=== PATIENT | female | born 2000 | race Two or more races ===

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

== ENCOUNTER 2019-05-24 21:46 | Inpatient (IN) | payer OTHER, MEDICAID ==
[~2019-05-24] VITALS: Ht 157.5 cm; Wt 111.0 kg
[2019-05-24 23:01] LABS: Urine Amorphous Crystal MOD /hpf (None Seen); Urine Bacteria MANY /hpf (None Seen); Urine Blood 2+ /uL (Negative); Urine Mucus FEW (None Seen); Urine Specific Gravity 1.017 (1.001-1.035); Urine WBC 238 /hpf (0 - 5); Urine WBC Clumps PRESENT /hpf (None Seen)
[2019-05-25] MEDS ORDERED: SODIUM CHLORIDE 0.9% 1,000 ML IV ONE (01:00)
[2019-05-25] MEDS ORDERED: cefTRIAXone 1GM/50ML D5W 50 ML IV ONE (03:00)
[2019-05-25] MEDS ORDERED: DOCUSATE SOD 100 MG CAP PO PRN (06:00)
[2019-05-25] MEDS ORDERED: HYDROcodone-ACET 5/325MG TAB PO PRN (06:00)
[2019-05-25] MEDS ORDERED: ACETAMINOPHEN 325 MG TAB PO PRN (06:00)
[2019-05-25] MEDS ORDERED: MORPHINE SULFATE 4 MG/ML SYR/VIAL IV PRN (06:00)
[2019-05-25] MEDS: SODIUM CHLORIDE 0.9% 1,000 ML IV SCH ×2 (06:11→11:54)
[2019-05-25] MEDS: ceFAZolin 1GM/50ML 50 ML IV SCH ×3 (06:18→17:42)
[2019-05-25 06:21] LABS: Basophils # (auto) 0 10 ^3/uL (0-0.2); Basophils % (auto) 0.2 % (0.0-2.0); Eosinophils # (auto) 0 10 ^3/uL (0-0.8); Hematocrit 36.9 % (36.0-46.0); Hemoglobin 12.5 g/dL (12.2-16.2); Lymphocytes # (auto) 0.9 10 ^3/uL (0.4-5.4); Lymphocytes % (auto) 8.4 % (10.0-50.0); Mean Corpuscular Hemoglobin 29.6 pg (28.0-32.0); Mean Corpuscular Hgb Conc. 33.8 g/dL (32.0-36.0); Mean Corpuscular Volume 87.5 fL (80.0-100.0); Monocytes # (auto) 0.5 10 ^3/uL (0-1.3); Monocytes % (auto) 4.7 % (0.0-12.0); Neutrophils # (auto) 9.2 10 ^3/uL (1.6-8.6); Neutrophils % (auto) 86.7 % (37.0-80.0); Nucleated Red Blood Cells % 0.1 %; Platelet Count (auto) 165 10^3/uL (140-450); Red Blood Cells 4.22 10^6/uL (4.0-5.20); Red Cell Distribution Width 14.8 % (11.8-14.3); White Blood Cell 10.6 10^3/uL (4.4-10.8)
[2019-05-25 06:38] LABS: BUN/Creatinine Ratio 9.6; Potassium 3.6 mmol/L (3.5-5.1)
--- NOTE | 2019-05-25 08:14 | NUR ---
[facility] admit from ER TERESO QUARLES admitted to [facility] after SBAR received. Patient oriented to Anita Tapia primary RN, unit, room, bed, and unit policies regarding patient care and visiting hours. Patient weighed by bed scale and encouraged to call if they need something. Instructed patient on POC, fall precautions and to call for assistance as needed. Patient verbalized understanding. Fall precautions in place with call light within reach.
[2019-05-25 09:00] VITALS: BP 118/68
--- NOTE | 2019-05-25 10:52 | NUR ---
Patient resting in bed with eyes closed Respirations even and unlabored on room air, no distress noted. No facial grimacing noted. Call light within reach.
--- NOTE | 2019-05-25 11:27 | NUR ---
was at bedside - Dr. Seymour This RN was at bedside.
--- NOTE | 2019-05-25 11:37 | NUR ---
RE: Urine bacterial culture - called laboratory Urine specimen collected previously. Called lab to have collected urine specimen used for urine bacterial culture. Laboratory to review and call this RN back.
[2019-05-25 13:00] VITALS: BP 117/61
[2019-05-25 17:00] VITALS: BP 136/73
--- NOTE | 2019-05-25 17:43 | NUR ---
Patient resting in bed with even and unlabored respirations on room air, no distress noted. Patient denies pain. Patient denies vaginal bleeding or abdominal pain. Patient reports no complications with urination. Call light within reach.
--- NOTE | 2019-05-25 18:40 | NUR ---
Closing note Patient resting in bed with even and unlabored respirations, no distress noted. Fall precautions in place with call light within reach.
--- NOTE | 2019-05-25 19:15 | NUR ---
Opening Shift Note Assumed care of patient, awake, alert and oriented x4, on 2L oxygen via NC, even and unlabored, no S/S of distress/SOB or pain. Patient able to turn independently, bed in lowest locked position, side rails up x2, and call light within reach. Instructed on POC and to call for assist PRN, will continue to monitor for changes Q1hr and PRN Addendum: 05/26/19 at 0231 by CHAPIS SANCHEZ RN RN PATIENT ON ROOM AIR
--- NOTE | 2019-05-25 19:15 | NUR ---
Care endorsed to Lukas Douglas RN.
[2019-05-25] MEDS: ONDANSETRON HCL 4 MG/2 ML VIAL IV PRN (20:56)
[2019-05-25 22:07] VITALS: BP 132/68
[2019-05-26] MEDS: ceFAZolin 1GM/50ML 50 ML IV SCH ×3 (00:18→12:07)
[2019-05-26] MEDS: SODIUM CHLORIDE 0.9% 1,000 ML IV SCH ×2 (01:54→11:54)
[2019-05-26 05:00] VITALS: BP 103/64
[2019-05-26 07:23] LABS: Basophils # (auto) 0 10 ^3/uL (0-0.2); Basophils % (auto) 0.5 % (0.0-2.0); Eosinophils # (auto) 0 10 ^3/uL (0-0.8); Eosinophils % (auto) 0.4 % (0.0-7.0); Hematocrit 36.6 % (36.0-46.0); Hemoglobin 12.3 g/dL (12.2-16.2); Lymphocytes # (auto) 1.1 10 ^3/uL (0.4-5.4); Lymphocytes % (auto) 18.3 % (10.0-50.0); Mean Corpuscular Hemoglobin 29.6 pg (28.0-32.0); Mean Corpuscular Hgb Conc. 33.7 g/dL (32.0-36.0); Monocytes # (auto) 0.3 10 ^3/uL (0-1.3); Neutrophils # (auto) 4.3 10 ^3/uL (1.6-8.6); Neutrophils % (auto) 74.8 % (37.0-80.0); Nucleated Red Blood Cells % 0.1 %; Platelet Count (auto) 149 10^3/uL (140-450); Red Blood Cells 4.16 10^6/uL (4.0-5.20); Red Cell Distribution Width 14.9 % (11.8-14.3); White Blood Cell 5.8 10^3/uL (4.4-10.8)
--- NOTE | 2019-05-26 07:30 | NUR ---
Morning note Patient resting in bed with eyes closed; respirations even and unlabored, no distress noted. Fall precautions in place with call light within reach.
[2019-05-26 07:37] LABS: BUN/Creatinine Ratio 6.3; Magnesium 1.9 mg/dL (1.6-2.6); Potassium 3.6 mmol/L (3.5-5.1)
[2019-05-26] MEDS: ONDANSETRON HCL 4 MG/2 ML VIAL IV PRN (08:31)
--- NOTE | 2019-05-26 08:37 | NUR ---
RE: Nausea/Vomiting/Pain Patient reporting nausea and vomiting. Patient vomited approximately 100ml of emesis. Patient medicated with PRN anti-nausea medication per MD order. Patient reporting headache, rated 5/10. PRN Tylenol offered to patient. Patient refused. Ice pack offered. Patient accepted. Patient reports mild cramping in the lower abdomen. Patient denies vaginal bleeding.
[2019-05-26 09:00] VITALS: BP 135/77
--- NOTE | 2019-05-26 09:25 | NUR ---
MD was at bedside - Dr. Seymour This RN was at bedside. Patient okay to be discharged after seen by OB MD and Urology MD and given the okay for discharge. Patient to follow up with PCP RE: urine bacterial culture. Patient verbalized understanding.
--- NOTE | 2019-05-26 10:36 | NUR ---
Patient okay for discharge per Genevieve Gong. N.P. for urology Patient to be continued with ordered antibiotic prescription Keflex on discharge.
[2019-05-26 13:00] VITALS: BP 121/77
--- NOTE | 2019-05-26 13:25 | NUR ---
Patient okay for discharge per Dr. Dhillon. Patient to follow up with her PCP and be referred to an OB MD. Okay for patient to be discharged on Keflex PO.
--- NOTE | 2019-05-26 14:55 | NUR ---
Discharge Discharge education and paperwork provided to the patient per MD order. Patient verbalized understanding. Instructed patient on follow up appointment scheduled and the need to schedule follow up appointments with OB MD and Urologist. Patient verbalized understanding. IV removed with clean technique, catheter intact. Dressing applied. Patient tolerated well, no trauma to site. Respirations even and unlabored on room air, no distress noted. Patient reports having all personal belongings. Patient has notified her transportation. Patient instructed to notify staff once transportation arrives. Patient verbalized understanding.
--- NOTE | 2019-05-26 15:41 | NUR ---
Patient's transportation arrived to hospital Patient transferred to hospital lobby via wheelchair accompanied by staff member. Patient reports having all personal belongings. Respirations even and unlabored on room air, no distress noted.
== END 2019-05-26 15:40 | disposition home or self-care (01) | DRG 566 ==
LOC: EDBD 21:46 → ER 21:54 → OVERFLOW 21:55 → WEST WING 05-25 08:14
PROVIDERS: ADMIT Hospitalist; ATTEND Internal Medicine
DX: O23.01 Infections of kidney in pregnancy, first trimester (principal); E66.01 Morbid (severe) obesity due to excess calories; N13.6 Pyonephrosis; Z3A.01 Less than 8 weeks gestation of pregnancy; O99.211 Obesity complicating pregnancy, first trimester; O99.341 Other mental disorders complicating pregnancy, first trimester; F32.9 Major depressive disorder, single episode, unspecified; F41.9 Anxiety disorder, unspecified; Z83.3 Family history of diabetes mellitus; Z82.49 Family history of ischemic heart disease and other diseases of the circulatory system; Z87.440 Personal history of urinary (tract) infections
CPT/HCPCS: 36415; 76775; 76801; 80048; 81001; 83735; 84702; 85025; 87086; 96361; 96365; 96375; G0378; J0690; J0696; J2405